=== PATIENT | male | born 1940 | race American Indian/Alaskan Native ===

== ENCOUNTER 2017-08-06 12:46 | Outpatient (CLI) | payer BC, MEDICARE ==
--- NOTE | 2017-08-06 14:25 | Ultrasound Report ---
ULTRASOUND RENAL BILATERAL HISTORY: Renal mass/cyst. TECHNIQUE: transabdominal ultrasound with color Doppler interrogation. FINDINGS: The right kidney measures 11.9cm. Right renal cortex: 1.3cm. The left kidney measures 10.8cm. Left renal cortex: 1.2cm. The kidneys are normal size, contour and position. There is increased renal parenchymal echotexture bilaterally. Corticomedullary differentiation is preserved. There are 2 simple cortical cysts in the superior and inferior right kidney measuring 1.2 cm and 0.8 cm respectively. No evidence for calculus, mass, hydronephrosis or perinephric fluid. The views of the bladder and the region of the ureters appear normal. IMPRESSION: Renal parenchymal disease. Simple right renal cysts.
== END 2017-08-06 12:47 | disposition home or self-care (01) ==
LOC: US 12:46
PROVIDERS: ATTEND Urology
DX: N28.1 Cyst of kidney, acquired (principal); N28.89 Other specified disorders of kidney and ureter
CPT/HCPCS: 76770